=== PATIENT | male | born 1980 | race Caucasian/White ===

== ENCOUNTER 2019-08-22 15:01 | Emergency (ER) | payer SELFPAY ==
[~2019-08-22] VITALS: Ht 175.3 cm; Wt 72.8 kg
[2019-08-22 15:04] VITALS: BP 131/92
[2019-08-22] MEDS ORDERED: LIDOCAINE-MPF 1%, 5ML INFIL ONE (15:30)
[2019-08-22] MEDS ORDERED: LIDOCAINE-MPF 1%, 5ML ONE (15:33)
[2019-08-22] MEDS ORDERED: NEOSPORIN OINT. PKT 1 PACKET ONE ×2 (15:34→16:47)
[2019-08-22] MEDS ORDERED: OXYcodone/APAP 7.5/325MG TABLET PO ONE (16:00)
[2019-08-22] MEDS ORDERED: OXYcodone/APAP 7.5/325MG TABLET ONE (16:01)
--- NOTE | 2019-08-22 16:04 | NUR ---
pt here with lac to left hand after incident with drill bit.
--- NOTE | 2019-08-22 16:09 | NUR ---
MEDICATED PER EMAR FOR LEFT HAND PAIN AT 03/02 REPORT TO JUD CASTANEDA
--- NOTE | 2019-08-22 16:13 | NUR ---
PA AT BEDSIDE FOR SUTURES.
--- NOTE | 2019-08-22 16:20 | NUR ---
REPORT RECEIVED FROM LEONEL CRAWFORD. CARE ASSUMED. WOUND IRRIGATED.
--- NOTE | 2019-08-22 16:43 | NUR ---
PER PA, 16 SUTURES PLACED.
--- NOTE | 2019-08-22 17:28 | NUR ---
Patient/Caregiver given discharge instructions and they have confirmed that they understand the instructions. Patient ambulatory with steady gait.
== END 2019-08-22 17:30 | disposition home or self-care (01) ==
LOC: ED 17:20
DX: S61.213A Laceration without foreign body of left middle finger without damage to nail, initial encounter (principal); S61.215A Laceration without foreign body of left ring finger without damage to nail, initial encounter; F17.200 Nicotine dependence, unspecified, uncomplicated; X58.XXXA Exposure to other specified factors, initial encounter; Y93.89 Activity, other specified; Y92.69 Other specified industrial and construction area as the place of occurrence of the external cause; Y99.8 Other external cause status
CPT/HCPCS: 12042; 99284